=== PATIENT | male | born 1995 | race Caucasian/White ===

== ENCOUNTER 2018-01-16 07:40 | Emergency (ER) | payer OTHER ==
[~2018-01-16] VITALS: Ht 177.8 cm; Wt 93.0 kg
[2018-01-16 07:42] VITALS: Ht 177.8 cm; Wt 93.0 kg
[2018-01-16] MEDS ORDERED: SODIUM CHLORIDE 0.9% 1000ML 1,000 ML IV STA (07:47)
[2018-01-16] MEDS ORDERED: XYLOCAINE 1%/SOD BICARB 20 ML VIAL INFIL STA (07:47)
[2018-01-16] MEDS ORDERED: ONDANSETRON INJ 2 MG/ML 2 ML VIAL IV STA (07:47)
[2018-01-16] MEDS ORDERED: HYDROmorphone INJ 1 MG/ML SYR IV STA (07:47)
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
[2018-01-16 08:17] VITALS: O2SAT 95
[2018-01-16 08:21] LABS: BASO % 0.2 %; BASO ABS # 0.03 K/uL (0-0.2); EOS % 0.2 %; EOS ABS # 0.02 K/uL (0-0.5); HEMATOCRIT 46.5 % (42-52); HEMOGLOBIN 17.5 g/dL (14.0-18.0); IG# 0.03 K/uL (0.00-0.02); LYMPH % 11.2 %; LYMPH ABS # 1.39 K/uL (1.2-3.4); MEAN CELL VOLUME 83.2 fL (80-100); MEAN CORPUSCULAR HEMOGLOBIN 31.3 pg (25-34); MEAN CORPUSCULAR HGB CONC 37.6 g/dl (32-36); MEAN PLATELET VOLUME 9.1 fL (7.4-10.4); MONO % 5.3 %; MONO ABS # 0.66 K/uL (0.11-0.59); NEUT % 82.9 %; NEUT ABS # 10.29 K/uL (1.4-6.5); PLATELET COUNT 175 K/uL (130-400); RED CELL DISTRIBUTION WIDTH SD 36.2 fL (36.4-46.3); WHITE BLOOD COUNT 12.42 K/uL (4.8-10.8)
[2018-01-16] MEDS ORDERED: LIDOCAINE/EPINEPHRINE 1% 20 ML VIAL INFIL STA (08:38)
[2018-01-16 08:41] LABS: ALBUMIN 4.6 gm/dl (3.4-5.0); CREATININE 0.88 mg/dl (0.60-1.40); POTASSIUM 3.6 mmol/L (3.5-5.1)
[2018-01-16 08:42] LABS: TOTAL PROTEIN 8.2 gm/dl (6.4-8.2)
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
[2018-01-16] MEDS ORDERED: KETOROLAC TROMETHAMINE 30 MG/ML VIAL IV STA (10:03)
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
[2018-01-16] MEDS ORDERED: OXYC-57 PO (10:22)
[2018-01-16] MEDS ORDERED: BACI500O11 TOP (10:22)
[2018-01-16] MEDS ORDERED: OPTIRAY 320 IV PRN (10:45)
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
[2018-01-16 11:37] VITALS: BP 129/74; PULSE 111; TEMP 36.8; O2SAT 98
== END 2018-01-16 11:39 | disposition home or self-care (01) ==
LOC: EDBD 07:40 → C.EDA 07:40
DX: S51.811A Laceration without foreign body of right forearm, initial encounter (principal); S01.01XA Laceration without foreign body of scalp, initial encounter; V48.6XXA Car passenger injured in noncollision transport accident in traffic accident, initial encounter